=== PATIENT | female | born 1985 | race American Indian/Alaskan Native ===

== ENCOUNTER 2017-04-27 11:14 | Outpatient (CLI) | payer OTHER ==
--- NOTE | 2017-04-27 12:44 | Ultrasound Report ---
RIGHT BREAST ULTRASOUND: 04/27/17 11:14:00 CLINICAL: Right breast nodule. Status post ultrasound-guided needle biopsy of a right benign fibroadenoma at 6 o'clock 3 cm from the nipple on 10/11/16. COMPARISON: A limited ultrasound right breast 10/11/16. FINDINGS: Ultrasound of the right breast(including all four quadrants and the retroareolar area) was performed and demonstrated a stable solid mass at 6 o'clock 3 cm from the nipple measuring 1.4 x 1.1 x 0.7 cm. It contains a biopsy clip. 2 additional solid oval hypoechoic retroareolar masses are identified at 9 o'clock. The larger measures 1.2 x 0.7 x 1.2 cm and the smaller measures 1.1 x 0.7 x 1.1 cm. Ultrasound of the axilla was treated a single lymph node with benign morphology and central fat measuring 1.3 x 0.6 x 0.6 cm. No suspicious lymph nodes. IMPRESSION: A stable benign fibroadenoma at 6 o'clock 3 cm from the nipple and 2 additional solid retroareolar masses with morphology typical of benign fibroadenomas. Recommend comparison with prior images and reports if available. BI-RADS 3 - - Probably Benign RECOMMENDATION: Six month followup right breast ultrasound to establish stability in size of 2 retroareolar masses.
== END 2017-04-27 11:15 | disposition home or self-care (01) ==
LOC: SPVWC 11:14
PROVIDERS: ATTEND Surgery
DX: D24.1 Benign neoplasm of right breast (principal); N63 Unspecified lump in breast

== ENCOUNTER 2017-11-02 14:59 | Outpatient (CLI) | payer OTHER ==
--- NOTE | 2017-11-02 16:20 | Ultrasound Report ---
RIGHT BREAST ULTRASOUND: 11/02/17 14:59:00 CLINICAL: A biopsy proven fibroadenoma at 6 o'clock and followup of 2 additional solid probably benign retroareolar masses. COMPARISON: 04/27/17 FINDINGS: Ultrasound of the right breast was performed and demonstrated a benign fibroadenoma at 6 o'clock 5 cm from the nipple measuring 1.0 x 0.7 x 1.0 cm is compared to 1.4 x 1.1 x 0.7 cm on the last exam. 2 additional solid retroareolar hypoechoic masses at 9 o'clock measure 1.1 x 0.7 x 1.0 cm and 1.0 x 0.9 x 0.7 cm compared to 1.2 x 0.7 x 1.2 cm and 1.1 x 0.7 x 1.1 cm on the last exam. No new findings. IMPRESSION: Stable probably benign solid retroareolar mass is at 9 o'clock and a stable biopsy proven benign fibroadenoma at 6 o'clock 5 cm from the nipple. Recommend continued ultrasound surveillance with ultrasound evaluation in six months. BI-RADS 3 - - Probably Benign
== END 2017-11-02 15:00 | disposition home or self-care (01) ==
LOC: SPVWC 14:59
PROVIDERS: ATTEND Surgery
DX: D24.1 Benign neoplasm of right breast (principal)

== ENCOUNTER 2018-12-19 12:46 | Outpatient (CLI) | payer OTHER ==
--- NOTE | 2018-12-19 13:48 | Ultrasound Report ---
Sonogram right and left breast: Compared to 11/02/17. History: Increase in size of palpable mass 9:00 position. Findings: 2 fibroadenomas are identified adjacent to each other at the 9:00 position. The larger measures 1.4 x 1.1 x 0.6 cm and the smaller measures 1 x 0.8 x 0.9 cm. Minimal increase in size is noted however no significant change in configuration or vascularity. The wall appears smooth. At 9:00 position there is a fibroadenoma noted, which is a site of previous biopsy, without significant interval change. The fibroadenoma measures 1.1 x 1.1 x 0.7 cm At the left breast there is a cyst identified at approximately 9:00 position 2 cm from nipple measuring 0.3 x 0.3 x 0.1 cm. Impression: Probably benign fibroadenomas right breast. Benign cyst left breast. Six-month followup of fibroadenomas right breast recommended. BI-RADS CATEGORY: 3 = Probably benign ACR BI-RADS MAMMOGRAPHIC CODES: 0 = Needs additional imaging evaluation; 1 = Negative; 2 = Benign; 3 = Probably benign; 4 = Suspicious; 5 = Malignant; 6 = Known biopsy-proven malignancy COMMENT: 1. Dense breast tissue, i.e., adenosis, fibrocystic changes, etc., may obscure an underlying neoplasm. 2. Approximately 10% of cancers are not detected with mammography. 3. A negative mammography report should not delay biopsy if a clinically suspicious mass is present.
== END 2018-12-19 12:47 | disposition home or self-care (01) ==
LOC: SPVWC 12:46
PROVIDERS: ATTEND Surgery
DX: N60.02 Solitary cyst of left breast (principal); N63.10 Unspecified lump in the right breast, unspecified quadrant